=== PATIENT | female | born 1950 | race Native Hawaiian/Other Pacific Islander ===

== ENCOUNTER 2020-09-02 13:12 | Outpatient (CLI) | payer OTHER ==
[~2020-09-02 13:12] MED LIST: AMIT25TA22 PO; ASPIRIN81 M2 OR; CELEXA20 MG PO; CLON0.1T16 PO; CLOP75TA2 PO; SIMV40TA57 PO; VITAMIN D5000 UNIT OR
== END 2020-09-02 20:10 | disposition home or self-care (01) ==
LOC: LAB 13:12
PROVIDERS: ATTEND Nurse Practitioner Family
DX: R19.7 Diarrhea, unspecified (principal)
CPT/HCPCS: 82272; 83630; 87015; 87045; 87324; 87328; 87329; 87449; 87899